=== PATIENT | male | born 1960 | race African-American/Black ===

== ENCOUNTER 2021-02-18 19:32 | Emergency (ER) | payer SELFPAY ==
[~2021-02-18] VITALS: Ht 177.8 cm; Wt 68.0 kg
[2021-02-18 22:11] VITALS: BP 141/73
== END 2021-02-18 22:12 | disposition home or self-care (01) ==
LOC: ER 19:49
DX: F16.10 Hallucinogen abuse, uncomplicated (principal); F17.200 Nicotine dependence, unspecified, uncomplicated; F14.10 Cocaine abuse, uncomplicated; F12.10 Cannabis abuse, uncomplicated; E11.9 Type 2 diabetes mellitus without complications; Z59.0 Homelessness
CPT/HCPCS: 93005; 99283